=== PATIENT | male | born 1980 | race Two or more races ===

== ENCOUNTER 2016-09-30 08:14 | Emergency (ER) | payer OTHER ==
--- NOTE | 2016-09-30 08:27 | EDPHY ---
HPI/HX/ROS/PE/MDM Narrative: CHIEF COMPLAINT: Right arm pain, Shortness of breath HPI: The patient is a 35-year-old male with history of right arm DVT and PEs, who complains of right arm pain and swelling The patient had right arm DVT two years ago that developed into PE. He is not anticoagulated. For the past week and a half the patient has experienced right arm pain. He states this pain feels similar to previous DVT. His right arm does not appear swollen, however he states it is darker than usual. He denies associated chest tightness and shortness of breath. REVIEW OF SYSTEMS: Aside from elements discussed in the HPI, a comprehensive 10-point review of systems was reviewed and is negative. PMH: DVT, PE. SOCIAL HISTORY: Single. 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 PHYSICAL EXAM: General: Patient is alert, in no acute distress. ENT: Eyes are normal to inspection. ENT inspection normal. Neck: Normal inspection. Full range of motion. Respiratory: No respiratory distress. Breath sounds normal bilaterally. Cardiovascular: Regular rate and rhythm. Strong peripheral pulses. Abdomen: The abdomen is nontender to palpation. There are no peritoneal signs. There are normal bowel sounds. Back: Normal to inspection. No tenderness to palpation. Skin: Normal color. No rash. Warm and dry. Extremities: Normal appearance. Full range of motion. Neuro: Oriented x3. Normal motor function. Normal sensory function. ED Course: Plan for extremity US to look for DVT. D-dimer, Troponin, and BMP are pending. EKG was ordered and interpreted by myself, normal. Please see [employer] system for official reading. D-dimer and Troponin are negative. Lab work is otherwise unremarkable. US is negative for DVT. I discussed findings with the patient. Plan to discharge patient home. MDM: This patient presents with arm swelling but has a negative study. He has no complaints to suggest PE. I cautioned him regarding finding of narrowing of vessels and need for follow-up with his PCP for this. - Data Points Imaging Results: Imaging Impressions Extremity Venous Study 09/30/16 08:36 Impression: 1. No evidence of vein thrombosis in the right arm. 2. Mild narrowing without obstruction of the right subclavian vein. Results called and discussed with Dino Rivera MD on 09/30/2016 at 10:17 Imaging: Discussed imaging studies w/ [employer] Radiologist Laboratory Results: Laboratory Results 09/30/16 08:44 09/30/16 08:46 09/30/16 09/30/16 09/30/16 08:46 08:46 08:44 WBC 6.84 10^3/uL 10^3/uL (3.80-9.50) RBC 5.50 10^6/uL 10^6/uL (4.40-6.38) Hgb 17.3 g/dL g/dL (13.7-17.5) Hct 49.8 % % (40.0-51.0) MCV 90.5 fL fL (81.5-99.8) MCH 31.5 pg pg (27.9-34.1) MCHC 34.7 g/dL g/dL (32.4-36.7) RDW 12.5 % % (11.5-15.2) Plt Count 263 10^3/uL 10^3/uL (150-400) MPV 10.6 fL fL (8.7-11.7) Neut % (Auto) 44.7 % % (39.3-74.2) Lymph % (Auto) 42.4 % % (15.0-45.0) [place] % (Auto) 8.8 % % (4.5-13.0) Eos % (Auto) 2.6 % % (0.6-7.6) Baso % (Auto) 1.2 % % (0.3-1.7) Nucleat RBC Rel Count 0.0 % % (0.0-0.2) Absolute Neuts (auto) 3.06 10^3/uL 10^3/uL (1.70-6.50) Absolute Lymphs (auto) 2.90 10^3/uL 10^3/uL (1.00-3.00) Absolute Monos (auto) 0.60 10^3/uL 10^3/uL (0.30-0.80) Absolute Eos (auto) 0.18 10^3/uL 10^3/uL (0.03-0.40) Absolute Basos (auto) 0.08 10^3/uL 10^3/uL (0.02-0.10) Absolute Nucleated RBC 0.00 10^3/uL 10^3/uL (0-0.01) Immature Gran % 0.3 % % (0.0-1.1) Immature Gran # 0.02 10^3/uL 10^3/uL (0.00-0.10) PT 12.6 SEC SEC (12.0-15.0) INR 0.95 (0.83-1.16) APTT 25.1 SEC SEC (23.0-38.0) D-Dimer < 0.27 ug/mLFEU ug/mLFEU (0.00-0.50) Sodium 143 mEq/L mEq/L (134-144) Potassium 3.9 mEq/L mEq/L (3.5-5.2) Chloride 105 mEq/L mEq/L (97-110) Carbon Dioxide 25 mEq/l mEq/l (22-31) Anion Gap 13 mEq/L mEq/L (8-16) BUN 20 mg/dL mg/dL (7-23) Creatinine 1.0 mg/dL mg/dL (0.7-1.3) Estimated GFR > 60 Glucose 83 mg/dL mg/dL (70-100) Calcium 10.1 mg/dL mg/dL (8.5-10.4) Troponin I < 0.012 ng/mL ng/mL (0-0.034) General Time Seen by Provider: 09/30/16 08:25 Initial Vital Signs: Initial Vital Signs Temperature (C) 37.6 C 09/30/16 08:19 Heart Rate 62 09/30/16 08:19 Respiratory Rate 18 09/30/16 08:19 Blood Pressure 137/76 H 09/30/16 08:19 O2 Sat (%) 97 09/30/16 08:19 O2 Delivery Mode Room Air Allergies/Adverse Reactions: No Known Allergies Allergy (Verified 09/30/16 08:18) Home Medications: Medication Instructions Recorded Albuterol 5 mg/ml INH 09/30/16 Departure - Departure Disposition: Home, Routine, Self-Care Clinical Impression: Right arm pain Condition: Good Instructions: Arm Pain (ED) Additional Instructions: Followup with your primary care physician as needed. Return to the emergency department if you develop chest pain, shortness of breath, swelling in your extremity, or worsening symptoms. Referrals: ATIF HERNANDEZ [Primary Care Provider] - As per Instructions Report Scribed for: Dino Rivera Report Scribed by: Jamee Pink Date of Report: 09/30/16 Time of Report: 08:38 Physician Review and Approval Statement: Portions of this note were transcribed by a medical equipment repair technician. I personally performed a history, physical exam, medical decision making, and confirmed accuracy of information the transcribed note.
[2016-09-30 08:52] LABS: % IMMATURE GRANULYOCYTES 0.3 % (0.0-1.1); ABSOLUTE IMMATURE GRANULOCYTES 0.02 10^3/uL (0.00-0.10); ADD DIFF? NO; ADD MORPH? NO; ADD SCAN? NO; ATYPICAL LYMPHOCYTE FLAG 0 (0-99); FRAGMENT RBC FLAG 0 (0-99); HEMATOCRIT 49.8 % (40.0-51.0); HEMOGLOBIN 17.3 g/dL (13.7-17.5); LEFT SHIFT FLG 0 (0-99); LIPEMIA HEMOLYSIS FLAG 90 (0-99); MEAN CELL HEMOGLOBIN 31.5 pg (27.9-34.1); MEAN CELL HEMOGLOBIN CONCENTR. 34.7 g/dL (32.4-36.7); MEAN CELL VOLUME 90.5 fL (81.5-99.8); MEAN PLATELET VOLUME 10.6 fL (8.7-11.7); PLATELET CLUMPS FLAG 0 (0-99); PLATELET COUNT 263 10^3/uL (150-400); RED CELL DISTRIBUTION WIDTH 12.5 % (11.5-15.2)
--- NOTE | 2016-09-30 08:52 | CPEKG ---
Heart Rate: 57 RR Interval: 1053 P-R Interval: 152 QRSD Interval: 98 QT Interval: 420 QTC Interval: 409 P [place]: 42 QRS [place]: 9 T Wave [place]: 20 EKG Severity - NORMAL ECG - EKG Impression: SINUS RHYTHM Electronically Signed By: Alexis Landis 01-Oct-2016 08:52:03
[2016-09-30 08:57] LABS: APTT 25.1 SEC (23.0-38.0); INR 0.95 (0.83-1.16); PROTIME(PATIENT) 12.6 SEC (12.0-15.0)
[2016-09-30 09:00] LABS: ANION GAP 13 mEq/L (8-16); CALCIUM 10.1 mg/dL (8.5-10.4); CARBON DIOXIDE 25 mEq/l (22-31); CHLORIDE 105 mEq/L (97-110); GLOMERULAR FILTRATION RATE > 60; GLUCOSE 83 mg/dL (70-100); POTASSIUM 3.9 mEq/L (3.5-5.2); SODIUM 143 mEq/L (134-144)
[2016-09-30 09:12] LABS: TROPONIN I < 0.012 ng/mL (0-0.034)
[2016-09-30 10:48] VITALS: BP 124/83; PULSE 56; RESP 16; TEMP 98.8; O2SAT 96
== END 2016-09-30 10:47 | disposition home or self-care (01) ==
DX: M79.601 Pain in right arm (principal)

== ENCOUNTER → 2018-07-19 | Outpatient (CLI) | payer OTHER | LOC: CIMAGING 16:26 | PROVIDERS: ATTEND Family Medicine | DX: R07.89 Other chest pain (principal) | CPT/HCPCS: 71046-PO ==

== ENCOUNTER → 2018-08-21 | Outpatient (CLI) | payer OTHER | LOC: BMCIMAGING 10:44 | PROVIDERS: ATTEND Family Medicine | DX: T14.8XXA Other injury of unspecified body region, initial encounter (principal) ==